=== PATIENT | male | born 1945 | race Hispanic/Latino ===

== ENCOUNTER → 2023-02-21 | Day surgery (SDC) | payer MEDICARE ==
[2023-02-17 12:11] LABS: BASOPHILS % 0.4 % (0.0-1.0); EOSINOPHILS # (AUTO) 0.3 (0.0-0.4); EOSINOPHILS % 2.4 % (0.0-6.0); HEMATOCRIT 35.7 % (38.2-49.6); HEMOGLOBIN 11.5 g/dL (14.0-18.0); LYMPHOCYTES # (AUTO) 1.8 (1.0-3.2); LYMPHOCYTES % 16.6 % (18.0-39.1); MEAN CORPUSCULAR HEMOGLOBIN 28.8 pg (28-32); MEAN CORPUSCULAR HGB CONC 32.2 g/dL (31-35); MEAN CORPUSCULAR VOLUME 89.3 fL (81-99); MONOCYTES # (AUTO) 0.8 (0.2-0.8); MONOCYTES % 7.6 % (4.4-11.3); NEUTROPHILS # (AUTO) 7.8 (2.1-6.9); NEUTROPHILS % 72.6 % (38.7-80.0); PLATELET COUNT 217 x10e3/uL (140-360); RED CELL DISTRIBUTION WIDTH 13.3 % (11.7-14.4)
[2023-02-17 12:36] LABS: ALANINE AMINOTRANSFERASE 39 IU/L (0-55); ALBUMIN 3.7 g/dL (3.5-5.0); ALKALINE PHOSPHATASE 46 IU/L (40-150); ANION GAP 18.5 mmol/L (8-16); BLOOD UREA NITROGEN 37 mg/dL (7-26); BUN/CREATININE RATIO 17 (6-25); CALCIUM 9.4 mg/dL (8.4-10.2); CARBON DIOXIDE 21 mmol/L (22-29); CHLORIDE 104 mmol/L (98-107); CHOL/HDL RATIO 4.6 (3.9-4.7); CHOLESTEROL 123 MD/DL (0-199); CREATININE, SERUM 2.21 mg/dL (0.72-1.25); GLUCOSE 200 mg/dL (74-118); HDL CHOLESTEROL 27 MG/DL (40-60); LDL CHOLESTEROL 59 MG/DL (60-130); POTASSIUM 4.5 mmol/L (3.5-5.1); SODIUM 139 mmol/L (136-145); TRIGLYCERIDES 183 MG/DL (0-149)
[~2023-02-21] VITALS: Ht 170.2 cm; Wt 90.7 kg
[2023-02-21] VITALS (13 sets, daily range): BP systolic 120–149; BP diastolic 63–83
[~2023-02-21] MED LIST: ALPRAZOLAM 0.5 MG TAB ONE; ATENOLOL50 MG PO; ATORVASTATIN CA20 MG PO; BENICAR20 MG PO; DIPHENHYDRAMINE HCL 25 MG CAP ONE; FENTANYL CITRATE/PF 100MCG/2 ML INJ ONE; FINASTERIDE5 MG PO; FLOMAX0.4 MG PO; GLIMEPIRIDE2 MG PO; HEPARIN SOD (PORCINE) 1000 UNIT/ML 30ML ONE; HEPARIN SOD/SOD CHLORIDE 0 ML ONE; HEPARIN SOD/SOD CHLORIDE 2,000 ML ONE; HYDROCHLOROTH12.5 MG PO; IOPAMIDOL 370 MG/ML 100 ML INFUS..BTL INJ ONE; ISOSORBIDE MONO30 MG PO; LIDOCAINE HCL 2% LOCAL 20 ML VIAL ONE; MIDAZOLAM HCL 2 MG/2 ML VIAL ONE; NITROGLYCERIN/D5W 200 MCG/ML 0 ML ONE; PROTONIX20 MG PO; SODIUM CHLORIDE 0.9% 1000ML 1,000 ML ONE; VERAPAMIL HCL 2.5 MG/ML 2 ML VIAL ONE; Z.0.BENAZEPRIL HCL40 PO; Z.0.JANUVIA50 MG PO; Z.0.METOPROLOL SUCC2 PO; Z.0.NORVASC10 MG PO; Z.2.METFORMIN HCL500 PO
== END | disposition home or self-care (01) ==
LOC: CATH LAB 10:08
PROVIDERS: ATTEND Internal Medicine Interventional Cardiology
DX: I25.118 Atherosclerotic heart disease of native coronary artery with other forms of angina pectoris (principal); I10 Essential (primary) hypertension; E78.2 Mixed hyperlipidemia; E11.9 Type 2 diabetes mellitus without complications; R93.1 Abnormal findings on diagnostic imaging of heart and coronary circulation; E66.9 Obesity, unspecified; Z01.812 Encounter for preprocedural laboratory examination; Z20.822 Contact with and (suspected) exposure to COVID-19; Z79.84 Long term (current) use of oral hypoglycemic drugs; Z79.899 Other long term (current) drug therapy; Z68.31 Body mass index [BMI] 31.0-31.9, adult
CPT/HCPCS: 0223U; 36415 ×2; 80053; 80061; 82948; 85025; 93458; C1725; C1887 ×2; C1894; J2250; J3010; J7030; Q9967; 99152; J1644; J2001